=== PATIENT | male | born 1935 | race Caucasian/White ===

== ENCOUNTER 2017-01-15 14:25 | Emergency (ER) | payer MEDICARE ==
[~2017-01-15] VITALS: Ht 170.2 cm; Wt 79.2 kg
[~2017-01-15 14:25] MED LIST: ALLO300T PO; ASPI-496 PO; ASPI-515 PO; ASPI325T80 PO; BISA10SU65 PR; CARV-39 PO; CARV12.543 PO; CELE200C PO; CYCL5TAB PO; DIAZ10TA PO; DOCU-30 PO; DOXY100T PO; ENOX30SY4 SQ; FERR325T20 PO; HYDR-3138 PO; HYDR-3144 PO; HYDR-3307 PO; LACT1CAP4 PO; LISI-170 PO; LISI-466 PO; MAGN400O4 PO; MELO-184 PO; METH4TAB2 PO; METO25TA4 PO; OMEP-110 PO; OXYC1TAB9 PO; OXYC20TA42 PO; POLY17PO5 PO; PRED20TA PO; PRED5TAB PO; RISE5TAB PO; SENN1TAB7 PO; TAMS-11 PO; TAMS0.4C2 PO; [UNRECOGNIZED DRUG - REMARK] PO
[2017-01-15] MEDS ORDERED: HYDROcodone/APAP 5/325 TABLET ONE (14:46)
[2017-01-15] MEDS ORDERED: KETOROLAC 30 MG/1 ML ONE (14:46)
[2017-01-15] MEDS ORDERED: PRED1TAB PO (14:59)
[2017-01-15] MEDS ORDERED: HYDROcodone/APAP 5/325 TABLET PO ONE (15:00)
[2017-01-15] MEDS ORDERED: KETOROLAC 30 MG/1 ML IM ONE (15:00)
[2017-01-15 15:39] VITALS: BP 120/63
== END 2017-01-15 15:43 | disposition home or self-care (01) ==
LOC: ED 15:15
DX: R07.89 Other chest pain (principal); I11.9 Hypertensive heart disease without heart failure; Z88.6 Allergy status to analgesic agent; Z88.8 Allergy status to other drugs, medicaments and biological substances
CPT/HCPCS: 71010; 96372; 99283; J1885

== ENCOUNTER 2019-03-14 07:35 | Outpatient (CLI) | payer MEDICARE ==
[~2019-03-14 07:35] MED LIST changes: +DOCU-131 PO; -DOCU-30 PO; +FERR325T18 PO; -FERR325T20 PO; -HYDR-3138 PO; -HYDR-3144 PO; +HYDR-3237 PO; +HYDR-3245 PO; -HYDR-3307 PO; +HYDR-36 PO; -MAGN400O4 PO; +MAGN400O7 PO; -MELO-184 PO; +MELO15TA24 PO; +OXYC-432 PO; -OXYC1TAB9 PO; +PRED1TAB19 PO; +REGADENOSON 0.4 MG/5 ML SYRINGE ONE; +SENN-177 PO; -SENN1TAB7 PO
== END 2019-03-14 23:59 | disposition home or self-care (01) ==
LOC: CFH 07:35
PROVIDERS: ATTEND Internal Medicine Cardiovascular Disease
DX: I08.0 Rheumatic disorders of both mitral and aortic valves (principal); I25.10 Atherosclerotic heart disease of native coronary artery without angina pectoris; I10 Essential (primary) hypertension; E78.5 Hyperlipidemia, unspecified; Z87.891 Personal history of nicotine dependence
CPT/HCPCS: 0399T; 78452; 93017; 93306; A9502; J2785

== ENCOUNTER → 2020-10-15 | Outpatient (CLI) | payer MEDICARE ==
[~2020-10-15] MED LIST changes: -ASPI-515 PO; +ASPI-963 PO; -HYDR-3245 PO; +HYDR-3248 PO; -HYDR-36 PO; +HYDR1TAB53 PO; -OXYC-432 PO; +OXYC1TAB18 PO; -REGADENOSON 0.4 MG/5 ML SYRINGE ONE
== END | disposition home or self-care (01) ==
LOC: CFH 12:44
PROVIDERS: ATTEND Internal Medicine Cardiovascular Disease
DX: I08.3 Combined rheumatic disorders of mitral, aortic and tricuspid valves (principal)
CPT/HCPCS: 93306